=== PATIENT | male | born 1930 | race Caucasian/White ===

== ENCOUNTER 2016-04-08 10:11 | Inpatient (IN) | payer OTHER ==
[~2016-04-08] VITALS: Ht 185.4 cm; Wt 71.2 kg
--- NOTE | ~2016-04-08 | 2DMMODE ---
[facility] [place] [address] 2 D/M-MODE ECHOCARDIOGRAM Name: EFRAIN CARRASQUILLO Room #: 422-P [facility] IN M.R.#: [id number] Admission: 04/08/16 Attend Phys: Alex Medley Discharge: Date of : 32 Date of Service: 04/08/161811 Report #: [id number] THIS REPORT FOR: //name// Transthoracic Echocardiography Ordering physician: Iris Caba Referring physician: Santy Meraz Prop Making Supervisor: Cleopatra Salas RDCS Indications/History: Ischemic Cardiomyopathy. Murmur. Coronary artery disease. Myocardial infarction. Risk factors: Hypertension. Dyslipidemia. BP: 123 / HR: 66bpm Height: 72in Weight: 154.7lb 41 Study data: Comparison was made to the study of March 02, 2016. M-mode, complete 2D, complete spectral Doppler, and color Doppler. Location: Bedside. 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 Image quality was fair. 2D measurements Normal Normal LVID ED 44.4mm 36-57 IVS ED 10.4mm 6-11 LVID ES 34.7mm 23-40 LVPW ED 12.9mm 6-11 LA volume 42ml/m2 16-28 AoRoot diam 35.5mm 21-37 index ED LVOT diameter 21mm 18-23 Findings: Left ventricle: The cavity size was normal. Wall thickness was increased in a pattern of mild LVH. The estimated ejection fraction was in the range of 45% to 50%. Regional wall motion abnormalities: Akinesis of the basal-mid inferior myocardium; hypokinesis of the apical inferior and basal-mid inferolateral myocardium. Right ventricle: The cavity size was normal. Systolic function was normal. Right atrium: The atrium was dilated. [place] [address] [place] [address] 2 D/M-MODE ECHOCARDIOGRAM Name: EFRAIN CARRASQUILLO Room #: 422-P [facility] IN M.R.#: [id number] Admission: 04/08/16 Attend Phys: Alex Medley Discharge: Date of : 32 Date of Service: 04/08/161811 Report #: [id number] Left atrium: The atrium was mildly to moderately dilated. Volume index: 42ml/m2 (S). Aortic valve: Trileaflet; mildly thickened, mildly calcified leaflets. Doppler: There was no stenosis. No regurgitation. Peak velocity: 211.4cm/s (S). Peak gradient: 17.9mm Hg (S). Mitral valve: Mildly calcified annulus. Doppler: There was no evidence for stenosis. Mild to moderate regurgitation directed eccentrically. Peak E-wave velocity: 143.5cm/s. Peak gradient: 8.2mm Hg (D). Peak A-wave velocity: 132.8cm/s. Tricuspid valve: Structurally normal valve. Doppler: There was no evidence for stenosis. Trivial regurgitation. Regurgitant peak velocity: 225cm/s. Peak RV-RA gradient: 20mm Hg (S). Pulmonic valve: Structurally normal valve. Doppler: There was no evidence for stenosis. Mild regurgitation. Pericardium: There was no pericardial effusion. Aorta: Aortic root: The aortic root was normal in size. Pulmonary artery: Systolic pressure was estimated to be 30mm Hg. Diastolic function: Normal diastolic function. Systemic veins: Inferior vena cava: The vessel was dilated; the respirophasic diameter changes were blunted (< 50%). Conclusions 1. Left ventricle: The cavity size was normal. Wall thickness was increased in a pattern of mild LVH. The estimated ejection fraction was in the range of 45% to 50%. 2. Right atrium: The atrium was dilated. 3. Left atrium: The atrium was mildly to moderately dilated. 4. Aortic valve: Trileaflet; mildly thickened, mildly calcified leaflets. 5. Mitral valve: Mildly calcified annulus. Mild to moderate regurgitation directed eccentrically. 6. Pulmonic valve: Mild regurgitation. 7. Tricuspid valve: Trivial regurgitation. 8. Pulmonary arteries: Systolic pressure was estimated to be 30mm Hg. [facility] [address] [place] [address] 2 D/M-MODE ECHOCARDIOGRAM Name: FOREIGNEFRAIN EFLAND Room #: 422-P [facility] IN .R.#: [id number] Admission: 04/08/16 Attend Phys: Alex Medley Discharge: Date of : 32 Date of Service: 04/08/161811 Report #: [id number] 9. Inferior vena cava: The vessel was dilated; the respirophasic diameter changes were blunted (< 50%). <ELECTRONICALLY SIGNED> By: Juarez Cole MD 04/09/1656 11 Juarez Cole MD /barrett
--- NOTE | ~2016-04-08 | EKG ---
[address] [address] ELECTROCARDIOGRAM REPORT Name: EFRAIN CARRASQUILLO MOCLIPS Room #: 535- ADM IN M.R.#: [id number] Admission: 04/08/16 Attend Phys: Khari Rodríguez MD Discharge: Date of : 32 Report #: [id number] THIS REPORT FOR: //name// [facility] ED Test Date: 2016-04-08 Test Time: 10:16:16 Pat Name: EFRAIN CARRASQUILLO Department: Room: 535 Gender: M Linux Administrator: MARK : 1930 Requested By: Cisco Mares Order Number: [id number] MD: Dante Spivey Measurements Intervals [place] Rate: 74 P: 61 PA: 236 QRS: 42 QRSD: 120 T: 40 QT: 435 QTc: 483 Interpretive Statements Sinus rhythm Prolonged PA interval Incomplete left bundle branch block Electronically Signed On 04-08-2016 14:19:45 HAND DRAWER IN by Dante Spivey [email or web address] <ELECTRONICALLY SIGNED> By: Dante Spivey MD 04/08/16 1419 1016 [facility] Dante Spivey MD /STELLA
--- NOTE | ~2016-04-08 | HC ---
[facility] [place] [address] CONSULTATION Name: EFRAIN CARRASQUILLO Room #: 422-P [facility] IN M.R.#: [id number] Admission: 04/08/16 Attend Phys: Khari Rodríguez MD Discharge: 04/12/16 Date of : 32 Report #: [id number] THIS REPORT FOR: //name// CC: Santy Rodríguez DATE OF SERVICE: 04/08/2016 CHIEF COMPLAINT: Shoulder pain. HISTORY OF PRESENT ILLNESS: The patient is an 86-year-old gentleman with history of cardiac issues and a recent myocardial infarction in 02/2016. He has a stent in place and is followed by Cardiology service at [facility]. He was admitted today with cellulitis and potential abscess on his left subscapular region. This apparently is associated with a Holter monitor vest which he had been wearing for cardiac workup, apparently a hard piece of this device began to wear into his skin and gave cellulitis with significant pain. There has also been a fair amount of drainage from the site per report. This also was associated with pruritus. The patient also has a recent history of an ulceration versus cyst on the central gluteal region. The patient is on aspirin and Plavix at this time. He is afebrile, but he does have a leukocytosis at this time. Based upon his admission workup, white count of 17.2, hemoglobin of 12.1, platelets of 200, lactate of 1.8, creatinine also slightly elevated at 1.8. PAST MEDICAL HISTORY: Positive for cardiac catheterization in 1990, coronary artery disease, history of recent myocardial infarction with stent placed in 03/2016 just over 1 month ago, history of hypertension, hyperlipidemia and gastroesophageal reflux disease. PAST SURGICAL HISTORY: Positive for appendectomy in 1968, wisdom teeth extraction as well as multiple cardiac catheterization procedures. MEDICATIONS: Include Plavix 75 mg daily, amiodarone, metoprolol, losartan, aspirin 325 daily, Lasix 40 mg daily, Zocor 40 mg p.o. at bedtime and multivitamin. ALLERGIES: Include SHELLFISH, SULFA, TETANUS TOXOID. SOCIAL HISTORY: Negative for tobacco, ETOH or drug use. REVIEW OF SYSTEMS: CONSTITUTIONAL: Negative for fevers, chills or unwanted weight loss. OCULAR: Negative for diplopia or visual change. HEENT: No dysphagia or odynophagia. PULMONARY: No productive cough or shortness of breath. [facility] [address] [place] [address] CONSULTATION Name: EFRAIN CARRASQUILLO Room #: 422-P [facility] IN M.R.#: [id number] Admission: 04/08/16 Attend Phys: Khari Rodríguez MD Discharge: 04/12/16 Date of : 32 Report #: [id number] CARDIOVASCULAR: No chest pain or palpitation. GASTROINTESTINAL: Negative for abdominal pain, nausea, vomiting or diarrhea. GENITOURINARY: Negative for hesitancy or hematuria. MUSCULOSKELETAL: Positive for left upper back and shoulder pain as well as pruritus. CUTANEOUS: Positive for pruritus and pain as well as warmth of the left upper back and central gluteal region. NEUROLOGIC: Negative for focal weakness or tingling. PHYSICAL EXAMINATION: GENERAL: The patient is awake, alert and oriented. He is nontoxic and in no acute distress. He is hypertensive. He is fluent of conversation. Normal mood and affect. HEENT: Head is atraumatic and normocephalic. Oral cavity is clear. Mucosae pink and moist. No icterus. NECK: Supple, without lymphadenopathy. LUNGS: Clear to auscultation bilateral. HEART: Does show a systolic murmur. No jugular venous distention. ABDOMEN: Soft, nondistended, nontender to palpation. Well healed appendectomy scar. SKIN: Upper back is examined and there is a 14-16 cm area of significant erythema and blanching with warmth. There is a punctum which has serosanguineous discharge only. No kamilah purulence is expressible. This site is exquisitely tender to palpation, consistent with a soft tissue and skin infection. On the supragluteal region, on the patient's medial right gluteus, there is a 3-4 cm circumscribed ulceration which appears to have an eschar overlying; this is also tender to palpation and is consistent with a decubitus ulceration. No active drainage is noted. This is not stageable as it is covered with eschar. EXTREMITIES: Without clubbing, cyanosis or edema. The patient moves all extremities without any obvious focal deficits. IMPRESSION: An 86-year-old male patient with: 1. Cellulitis and possible abscess per his left suprascapular skin and soft tissue. This is consistent with a site of abrasion from a cardiac Holter monitor which the patient had been wearing at home. 2. Likely supragluteal cleft ulceration with no obvious surrounding erythema and no active drainage, unclear whether this is a decubitus ulcer or simply a cyst. RECOMMENDATION: 1. We will obtain ultrasound imaging of the suprascapular site as well as the gluteal site to evaluate whether surgical intervention might be beneficial. 2. Would make the patient n.p.o. after midnight per chance any intervention would be required. 3. Should the patient need to undergo a procedure, we will need to discuss case [address] [address] CONSULTATION Name: EFRAIN CARRASQUILLO Room #: 422-P [facility] IN .R.#: [id number] Admission: 04/08/16 Attend Phys: Khari Rodríguez MD Discharge: 04/12/16 Date of : 32 Report #: [id number] in detail with Cardiology and anesthesia team given his recent cardiac events. 4. IV antibiotic therapy has already been started by the hospitalist team. I agree with antibiotic coverage at this time. 5. Consultation very much appreciated. We will continue to follow closely and make further recommendations based upon clinical status. <ELECTRONICALLY SIGNED> By: Kailash Escobedo MD 04/20/16 1007 1621 2342 Kailash Escobedo MD /nt
--- NOTE | ~2016-04-08 | EKG ---
[address] [place] [address] ELECTROCARDIOGRAM REPORT Name: FOREIGNEFRAIN Room #: 422- ADM IN M.R.#: [id number] Admission: 04/08/16 Attend Phys: Khari Rodríguez MD Discharge: Date of : 32 Report #: [id number] THIS REPORT FOR: //name// [facility] Test Date: 2016-04-10 Test Time: 06:54:51 Pat Name: EFRAIN CARRASQUILLO Department: Room: 422 Gender: M Biotechnician: presley : 1930 Requested By: Iris Caba Order Number: [id number] MD: Erasmo Correa Measurements Intervals Media Rate: 58 P: 0 LA: 221 QRS: 46 QRSD: 119 T: QT: 459 QTc: 451 Interpretive Statements Sinus Bradycardia Prolonged LA interval Nonspecific ST segment abnormality Baseline wander in lead(s) V2 Compared to ECG 04/08/2016 10:16:16 No significant change was found Electronically Signed On 04-10-2016 14:31:13 TEST BORING CREW CHIEF by Erasmo Correa [email or web address] <ELECTRONICALLY SIGNED> By: Erasmo Correa MD, [facility] 04/10/16 1431 0654 0654 Erasmo Correa MD, [facility] /EPI
--- NOTE | ~2016-04-08 | EKG ---
[place] [address] [address] [facility] [place] [address] ELECTROCARDIOGRAM REPORT Name: FOREIGNEFRAIN YU Room #: 422- ADM IN M.R.#: [id number] Admission: 04/08/16 Attend Phys: Khari Rodríguez MD Discharge: Date of : 32 Report #: [id number] THIS REPORT FOR: //name// [facility] Test Date: 2016-04-09 Test Time: 10:11:34 Pat Name: EFRAIN CARRASQUILLO Department: Room: 422 P Gender: M Manager Money: Megan : 1930 Requested By: Iris Caba Order Number: [id number] MD: Erasmo Correa Measurements Intervals [place] Rate: 57 P: 21 OR: 190 QRS: 66 QRSD: 116 T: -8 QT: 498 QTc: 485 Interpretive Statements Sinus rhythm Poor R-wave progression Nonspecific ST segment abnormality Compared to ECG 04/08/2016 10:16:16 Sinus rhythm has replaced wide-complex tachycardia Electronically Signed On 04-10-2016 14:17:52 STONE SETTER APPRENTICE by Erasmo Correa [email or web address] <ELECTRONICALLY SIGNED> By: Erasmo Correa MD, [facility] 04/10/16 1417 1011 1011 Erasmo Correa MD, [facility] /EPI
--- NOTE | ~2016-04-08 | HC ---
[facility] [place] [address] CONSULTATION Name: EFRAIN CARRASQUILLO Room #: 422-P ADM IN M.R.#: [id number] Admission: 04/08/16 Attend Phys: Khari Rodríguez MD Discharge: Date of : 32 Report #: [id number] THIS REPORT FOR: //name// CC: Santy Rodríguez DATE OF SERVICE: 04/08/2016 INFECTIOUS DISEASE CONSULTATION HISTORY OF PRESENT ILLNESS: An 86-year-old white man admitted through the Emergency Room with history of left posterior chest infection. The patient tells me this as progressively getting worse for approximately a week. Other than pain, denies any other symptoms. No fevers. PAST MEDICAL HISTORY: 1. Coronary artery disease, coronary artery stenting. 2. Atrial fibrillation. 3. Appendectomy. 4. [place] teeth extraction. 5. Heart murmur since very young age. 6. Dyslipidemia. 7. Hypertension. MEDICATIONS: Prior medications at home, the patient is on some Plavix, amiodarone, metoprolol, losartan, aspirin, furosemide, simvastatin, multivitamins. Here in the hospital, the patient has received Rocephin and vancomycin and Ancef a gram every 8 hours' order. DRUG ALLERGIES: SULFA, TETANUS VACCINE, SHELLFISH. 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 REVIEW OF SYSTEMS: See H and P, essentially noncontributory. PHYSICAL EXAMINATION: GENERAL: A well-developed man, not toxic looking, no distress. VITAL SIGNS: Temperature 98.7, pulse 66, respirations 16, BP 123/41. HEENMT: Within range. NECK: Supple, no thyromegaly. CHEST: left posterior chest revealed an enlarged area of erythema on left posterior chest measuring at least 15 cm in diameter with an central area of purulence. There is some in duration of the area. LUNGS: Clear. HEART: Revealed murmur over the aortic focus. ABDOMEN: Soft, no masses or megaly. [facility] [address] [place] [address] CONSULTATION Name: EFRAIN CARRASQUILLO [place] Room #: 422-P ADM IN M.R.#: [id number] Admission: 04/08/16 Attend Phys: Khari Rodríguez MD Discharge: Date of : 32 Report #: [id number] GENITALIA AND RECTAL: Deferred. EXTREMITIES: No clubbing, cyanosis. NEUROLOGIC: Grossly within normal limits. LABORATORY DATA: Sodium 146, BUN 34, creatinine 1.8, glucose 120, albumin 3.2. Troponin normal. WBC 17.2, hemoglobin 12.1, platelets 200,000. White blood cell count differential 90% neutrophils. Urinalysis pending. MICROBIOLOGY DATA: Blood cultures were obtained. They are negative so far. RADIOLOGY EVALUATION: Chest x-ray is obtained. No radiology evaluation. ASSESSMENT: 1. Left posterior chest furuncle, possibly a Staphylococcus aureus infection. 2. Coronary artery disease status post stenting. 3. Chronic kidney disease. SUGGESTIONS: Recommend a surgical consultation, routine anaerobic culture of left posterior chest lesion. Discontinue Ancef. Zosyn 3.375 grams IV every 8 hours, Zyvox 600 mg IV every [address] Rodríguez, thank you for requesting my suggestions. <ELECTRONICALLY SIGNED> By: Lobito Spivey MD 04/12/16 1227 1454 2345 Lobito Spivey MD /nt
[~2016-04-08 10:11] MED LIST: ASPIR 8181 MG PO; ASPIRIN325 PO; ATORVASTATIN CA80 MG PO; CLOPIDOGREL75 MG PO; COZAAR 50 MG TA50 M1 PO; IPRATROPIU0.2 MG/1 M INH; K-DUR 20 MEQ T20 MEQ PO; LASIX 40 MG TAB40 M1 PO; MAGNESIUM OXID400 MG PO; METOPROLOL SUCC25 M1 PO; METOPROLOL5 MG/5 M2 IV PUSH; MORPHINE 44 MG/1 ML IV PUSH; MULTIVITAMINS PO; NIFEDIPINE ER60 M1 PO; ONDANSETRON HCL4 M1 IV PUSH; PACERONE 200 M200 MG PO; PROTONIX 440 MG/VIA2 IV PUSH; SIMVASTATIN40 MG PO
[2016-04-08 10:17] VITALS: BP 173/81
[2016-04-08 11:07] LABS: HEMATOCRIT 36.8 % (42.0-52.0); HEMOGLOBIN 12.1 gm/dL (14.0-18.0); MCH 33.9 pg (26.0-34.0); MCHC 32.9 % (28.0-37.0); MCV 103.1 fL (80.0-100.0); PLATELET COUNT 200 thou/uL (150-400); RBC 3.57 mil/uL (4.50-6.00); RDW 13.8 % (10.5-14.5); WBC 17.2 thou/uL (4.0-11.0)
[2016-04-08 11:11] LABS: MANUAL DIFF YES
[2016-04-08] MEDS ORDERED: SPECIAL C 5001 EACH PO (11:12)
[2016-04-08 11:33] LABS: ANION GAP 12 mmol/L (7-16); BUN 34 mg/dL (7-18); CALCIUM 8.9 mg/dL (8.5-10.1); CHLORIDE 107 mmol/L (98-107); CO2 27 mmol/L (21-32); CREATININE 1.8 mg/dL (0.6-1.3); GLUCOSE 120 mg/dL (70-99); POTASSIUM 4.4 mmol/L (3.5-5.1); SODIUM 146 mmol/L (136-145)
[2016-04-08 11:35] LABS: ABSOLUTE NEUTROPHILS 15.5 thou/uL (1.4-8.2); ANISOCYTOSIS SLIGHT; MACROCYTES 1+; PLATELET ESTIMATE NORMAL; TOTAL CELL COUNT 100
[2016-04-08 11:40] LABS: ALBUMIN 3.2 g/dL (3.4-5.0); ALKALINE PHOSPHATASE 104 U/L (46-116); MAGNESIUM 2.4 mg/dL (1.8-2.4); SGOT 14 U/L (15-37); SGPT 20 U/L (30-65); TOTAL BILIRUBIN 0.4 mg/dL (<0.1-1.0); TOTAL PROTEIN 7.3 g/dL (6.4-8.2); TROPONIN-I < 0.04 ng/mL (<0.04-0.07)
[2016-04-08 13:32] VITALS: BP 123/41
[2016-04-08 18:10] VITALS: BP 117/52
[2016-04-08 20:00] VITALS: BP 123/52
[2016-04-09 04:00] VITALS: BP 95/51
[2016-04-09 06:15] LABS: HEMATOCRIT 28.7 % (42.0-52.0); MCH 34.2 pg (26.0-34.0); MCHC 33.8 % (28.0-37.0); MCV 101.2 fL (80.0-100.0); RBC 2.84 mil/uL (4.50-6.00); WBC 16.5 thou/uL (4.0-11.0)
[2016-04-09 06:18] LABS: ALBUMIN 2.2 g/dL (3.4-5.0); CALCIUM 7.7 mg/dL (8.5-10.1); CREATININE 1.7 mg/dL (0.6-1.3); POTASSIUM 3.9 mmol/L (3.5-5.1); TOTAL BILIRUBIN 0.6 mg/dL (<0.1-1.0); TOTAL PROTEIN 5.4 g/dL (6.4-8.2)
[2016-04-09 06:20] LABS: HEMOGLOBIN 9.7 gm/dL (14.0-18.0)
[2016-04-09 07:50] VITALS: BP 107/52
[2016-04-09 15:14] VITALS: BP 100/46
[2016-04-09 20:00] VITALS: BP 123/33
[2016-04-10 04:30] VITALS: BP 112/52
[2016-04-10 05:44] LABS: HEMATOCRIT 29.7 % (42.0-52.0); HEMOGLOBIN 9.7 gm/dL (14.0-18.0); MCH 33.7 pg (26.0-34.0); MCHC 32.6 % (28.0-37.0); MCV 103.4 fL (80.0-100.0); RBC 2.87 mil/uL (4.50-6.00); RDW 14.3 % (10.5-14.5); WBC 14.9 thou/uL (4.0-11.0)
[2016-04-10 06:02] LABS: CALCIUM 8.1 mg/dL (8.5-10.1); CREATININE 1.7 mg/dL (0.6-1.3); POTASSIUM 4.1 mmol/L (3.5-5.1)
[2016-04-10 07:42] VITALS: BP 117/55
[2016-04-10 12:27] VITALS: BP 121/53
[2016-04-10 16:47] VITALS: BP 139/63
[2016-04-10 20:00] VITALS: BP 139/62
[2016-04-11 04:00] VITALS: BP 120/55
[2016-04-11 05:23] LABS: HEMATOCRIT 28.7 % (42.0-52.0); HEMOGLOBIN 9.8 gm/dL (14.0-18.0); MCH 34.3 pg (26.0-34.0); MCHC 34.2 % (28.0-37.0); MCV 100.3 fL (80.0-100.0); RBC 2.86 mil/uL (4.50-6.00); WBC 11.5 thou/uL (4.0-11.0)
[2016-04-11 05:58] LABS: CREATININE 1.6 mg/dL (0.6-1.3); POTASSIUM 3.4 mmol/L (3.5-5.1)
[2016-04-11 07:39] VITALS: BP 131/58
[2016-04-11 16:11] VITALS: BP 144/50
[2016-04-11 20:00] VITALS: BP 168/72
[2016-04-12 04:00] VITALS: BP 138/64
[2016-04-12 05:40] LABS: HEMATOCRIT 31.1 % (42.0-52.0); HEMOGLOBIN 10.5 gm/dL (14.0-18.0); MCHC 33.6 % (28.0-37.0); MCV 101.3 fL (80.0-100.0); RBC 3.07 mil/uL (4.50-6.00); RDW 13.4 % (10.5-14.5); WBC 9.1 thou/uL (4.0-11.0)
[2016-04-12 05:57] LABS: CALCIUM 8.2 mg/dL (8.5-10.1); CREATININE 1.5 mg/dL (0.6-1.3); POTASSIUM 3.7 mmol/L (3.5-5.1)
[2016-04-12 07:38] VITALS: BP 138/63
[2016-04-12] MEDS ORDERED: KEFLEX500 MG PO (13:33)
[2016-04-12 14:20] VITALS: BP 138/63
== END 2016-04-12 15:47 | disposition home or self-care (01) | DRG 579 ==
LOC: ER 10:11 → 4E 12:43 → EROBS 12:43 → 5S 13:33 → 4E 17:27
PROVIDERS: Emergency Medicine; Family Medicine; Nurse Practitioner Acute Care
PROC: 0JD90ZZ Extraction of Buttock Subcutaneous Tissue and Fascia, Open Approach (ICD-10-PCS; principal; 2016-04-11)
DX: L03.312 Cellulitis of back [any part except buttock and flank] (principal); L89.153 Pressure ulcer of sacral region, stage 3; N17.9 Acute kidney failure, unspecified; L03.317 Cellulitis of buttock; E87.0 Hyperosmolality and hypernatremia; L03.115 Cellulitis of right lower limb; E78.5 Hyperlipidemia, unspecified; N18.9 Chronic kidney disease, unspecified; I12.9 Hypertensive chronic kidney disease with stage 1 through stage 4 chronic kidney disease, or unspecified chronic kidney disease; D72.829 Elevated white blood cell count, unspecified; I25.10 Atherosclerotic heart disease of native coronary artery without angina pectoris; K08.409 Partial loss of teeth, unspecified cause, unspecified class; E78.00 Pure hypercholesterolemia, unspecified; K21.9 Gastro-esophageal reflux disease without esophagitis; Z79.899 Other long term (current) drug therapy; Z79.82 Long term (current) use of aspirin; Z91.013 Allergy to seafood; Z88.2 Allergy status to sulfonamides; Z88.7 Allergy status to serum and vaccine; Z90.49 Acquired absence of other specified parts of digestive tract; I25.2 Old myocardial infarction; Z79.02 Long term (current) use of antithrombotics/antiplatelets; Z95.5 Presence of coronary angioplasty implant and graft; Z87.01 Personal history of pneumonia (recurrent); Z91.81 History of falling; Z87.891 Personal history of nicotine dependence; Z79.2 Long term (current) use of antibiotics; L89.310 Pressure ulcer of right buttock, unstageable
CPT/HCPCS: 10183

== ENCOUNTER → 2016-04-14 | Outpatient (CLI) | payer OTHER ==
[~2016-04-14] MED LIST changes: +KEFLEX500 MG PO; +SPECIAL C 5001 EACH PO
== END ==
LOC: HYPER 07:03
DX: L89.313 Pressure ulcer of right buttock, stage 3 (principal); S41.002A Unspecified open wound of left shoulder, initial encounter; I49.01 Ventricular fibrillation; I13.0 Hypertensive heart and chronic kidney disease with heart failure and stage 1 through stage 4 chronic kidney disease, or unspecified chronic kidney disease; N18.9 Chronic kidney disease, unspecified; I50.9 Heart failure, unspecified; I46.2 Cardiac arrest due to underlying cardiac condition; Z86.74 Personal history of sudden cardiac arrest; X58.XXXA Exposure to other specified factors, initial encounter; Y93.89 Activity, other specified; Y92.89 Other specified places as the place of occurrence of the external cause; Y99.8 Other external cause status

== ENCOUNTER → 2016-04-27 | Outpatient (CLI) | payer OTHER | LOC: HYPER 07:05 | DX: L89.310 Pressure ulcer of right buttock, unstageable (principal); S41.00 Unspecified open wound of shoulder; I46.2 Cardiac arrest due to underlying cardiac condition; I49.01 Ventricular fibrillation; I13.0 Hypertensive heart and chronic kidney disease with heart failure and stage 1 through stage 4 chronic kidney disease, or unspecified chronic kidney disease; N18.9 Chronic kidney disease, unspecified; I50.9 Heart failure, unspecified; Z72.0 Tobacco use; X58.XXXD Exposure to other specified factors, subsequent encounter ==

== ENCOUNTER → 2016-06-28 | Outpatient (CLI) | payer OTHER | LOC: HYPER 07:10 | DX: L89.310 Pressure ulcer of right buttock, unstageable (principal); I13.0 Hypertensive heart and chronic kidney disease with heart failure and stage 1 through stage 4 chronic kidney disease, or unspecified chronic kidney disease; N18.9 Chronic kidney disease, unspecified; I50.9 Heart failure, unspecified ==

== ENCOUNTER → 2016-07-19 | Outpatient (CLI) | payer OTHER | LOC: HYPER 07:04 | DX: L89.310 Pressure ulcer of right buttock, unstageable (principal); L02.212 Cutaneous abscess of back [any part, except buttock and flank]; I46.2 Cardiac arrest due to underlying cardiac condition; I13.0 Hypertensive heart and chronic kidney disease with heart failure and stage 1 through stage 4 chronic kidney disease, or unspecified chronic kidney disease; N18.9 Chronic kidney disease, unspecified; I50.9 Heart failure, unspecified; Z72.0 Tobacco use ==

== ENCOUNTER → 2016-08-16 | Outpatient (CLI) | payer OTHER | LOC: HYPER 06:57 | DX: L02.415 Cutaneous abscess of right lower limb (principal); L89.310 Pressure ulcer of right buttock, unstageable; I46.2 Cardiac arrest due to underlying cardiac condition; L02.212 Cutaneous abscess of back [any part, except buttock and flank]; I13.0 Hypertensive heart and chronic kidney disease with heart failure and stage 1 through stage 4 chronic kidney disease, or unspecified chronic kidney disease; N18.9 Chronic kidney disease, unspecified; I50.9 Heart failure, unspecified; Z72.0 Tobacco use ==

== ENCOUNTER → 2016-09-07 | Outpatient (CLI) | payer OTHER | LOC: HYPER 07:07 | DX: L89.310 Pressure ulcer of right buttock, unstageable (principal); L02.212 Cutaneous abscess of back [any part, except buttock and flank]; L02.818 Cutaneous abscess of other sites; I25.2 Old myocardial infarction; I13.0 Hypertensive heart and chronic kidney disease with heart failure and stage 1 through stage 4 chronic kidney disease, or unspecified chronic kidney disease; N18.9 Chronic kidney disease, unspecified; I50.9 Heart failure, unspecified ==

== ENCOUNTER → 2016-09-28 | Outpatient (CLI) | payer OTHER | LOC: HYPER 07:13 | DX: S81.801A Unspecified open wound, right lower leg, initial encounter (principal); I46.2 Cardiac arrest due to underlying cardiac condition; L02.415 Cutaneous abscess of right lower limb; I49.01 Ventricular fibrillation; I13.0 Hypertensive heart and chronic kidney disease with heart failure and stage 1 through stage 4 chronic kidney disease, or unspecified chronic kidney disease; N18.9 Chronic kidney disease, unspecified; I50.9 Heart failure, unspecified; X58.XXXA Exposure to other specified factors, initial encounter; Y93.89 Activity, other specified; Y92.89 Other specified places as the place of occurrence of the external cause; Y99.8 Other external cause status ==

== ENCOUNTER 2017-04-12 22:41 | Emergency (ER) | payer OTHER ==
[~2017-04-12] VITALS: Ht 185.4 cm; Wt 71.2 kg
--- NOTE | ~2017-04-12 | EKG ---
[address] [address] ELECTROCARDIOGRAM REPORT Name: EFRAIN CARRASQUILLO Room #: [facility] AMANDA Alonzo#: [id number] Admission: 04/12/17 Attend Phys: Discharge: 04/13/17 Date of : 32 Report #: [id number] THIS REPORT FOR: //name// [facility] ED Test Date: 2017-04-12 Test Time: 23:34:51 Pat Name: EFRAIN CARRASQUILLO Department: Room: Gender: M Baker Doughnut: NIRAJ : 1930 Requested By: Serafin Urias Order Number: [id number] MD: Dante Spivey Measurements Intervals [place] Rate: 59 P: -11 IA: 201 QRS: 34 QRSD: 119 T: 67 QT: 447 QTc: 443 Interpretive Statements Sinus rhythm Nonspecific intraventricular conduction delay Borderline repolarization abnormality Compared to ECG 04/10/2016 06:54:51 Intraventricular conduction delay now present Sinus bradycardia no longer present First degree AV block no longer present ST (T wave) deviation no longer present Electronically Signed On 04-13-2017 15:00:07 COUNTER CLERK [employer] by Dante Spivey [email or web address] <ELECTRONICALLY SIGNED> By: Dante Spivey MD 04/13/17 1500 2334 2334 Dante Spivey MD /EPI
[2017-04-12] MEDS ORDERED: LIPITOR 20 MG T20 M1 PO (22:51)
[2017-04-12 23:49] LABS: ANION GAP 8 mmol/L (7-16); BUN 25 mg/dL (7-18); CALCIUM 8.7 mg/dL (8.5-10.1); CHLORIDE 108 mmol/L (98-107); CO2 26 mmol/L (21-32); CREATININE 1.7 mg/dL (0.7-1.3); GLUCOSE 135 mg/dL (74-106); POTASSIUM 4.3 mmol/L (3.5-5.1); SODIUM 142 mmol/L (136-145)
[2017-04-12 23:53] LABS: TROPONIN-I < 0.04 ng/mL (<0.06)
[2017-04-13 00:13] LABS: BASOPHILS 0.3 % (0.0-2.0); EOSINOPHILS 0.1 % (0.0-3.0); HEMATOCRIT 36.3 % (42.0-52.0); HEMOGLOBIN 12.2 gm/dL (14.0-18.0); LYMPHOCYTES 6.2 % (24.0-44.0); MCH 34.7 pg (26.0-34.0); MCHC 33.7 g/dL (28.0-37.0); MCV 102.9 fL (80.0-100.0); MONOCYTES 10.9 % (1.0-8.0); PLATELET COUNT 166 thou/uL (150-400); POLYS 82.5 % (36.0-66.0); RBC 3.53 mil/uL (4.50-6.00); RDW 14.2 % (10.5-14.5); WBC 9.7 thou/uL (4.0-11.0)
[2017-04-13 00:20] LABS: URINE BILIRUBIN NEGATIVE (Negative); URINE BLOOD TRACE (Negative); URINE CLARITY CLEAR; URINE COLOR YELLOW; URINE GLUCOSE-RANDOM* NEGATIVE (Negative); URINE KETONES NEGATIVE (Negative); URINE LEUKOCYTES NEGATIVE (Negative); URINE NITRITE NEGATIVE (Negative); URINE PROTEIN (DIPSTICK) TRACE (Negative); URINE SPECIFIC GRAVITY 1.025 (1.005-1.035); URINE UROBILINOGEN 0.2 E.U./dl (0.2-1.0)
[2017-04-13 01:13] VITALS: BP 168/64
== END 2017-04-13 01:25 | disposition home or self-care (01) ==
LOC: ER 22:41
PROVIDERS: Nurse Practitioner
DX: R53.1 Weakness (principal); I10 Essential (primary) hypertension; E78.00 Pure hypercholesterolemia, unspecified; K21.9 Gastro-esophageal reflux disease without esophagitis; Z91.013 Allergy to seafood; Z90.49 Acquired absence of other specified parts of digestive tract; Z88.2 Allergy status to sulfonamides; Z88.7 Allergy status to serum and vaccine; W18.39XA Other fall on same level, initial encounter; Y93.89 Activity, other specified; Y92.89 Other specified places as the place of occurrence of the external cause; Y99.8 Other external cause status